=== PATIENT | female | born 1980 | race Asian ===

== ENCOUNTER 2018-08-14 20:09 | Emergency (ER) | payer BC ==
[~2018-08-14] VITALS: Ht 157.5 cm; Wt 59.0 kg
--- OUTSIDE RECORDS SUMMARY | 2018-08-14 20:11 | XMS REPORT ---
Author Author [facility] Address Unknown Phone Unavailable Care Team Providers Care Foil Cutter Name Role Phone Bebo HURST Unavailable Unavailable Problems This patient has no known problems. Allergies, Adverse Reactions, Alerts This patient has no known allergies or adverse reactions. Medications This patient has no known medications. Results Test Description Test Time Test Comments Text Results Atomic Results Result Comments CT CHEST W [place] [address] Patient Name: ROSANA BAR MR #: [id number] : 1980 Age/Sex: 37/F Req #: [id number] Adm Physician: Ordered by: IBRAHIMA HURST MD Report #: [id number] Location: ER Room/Bed: Procedure: [id number] CT/CT CHEST W Exam Date: 05/16/17 Exam Time: 2037 REPORT STATUS: Signed EXAM: CT CHEST W DATE: 05/16/2017 7:48 PM INDICATION: S PE PROTOCOL, 5D POST- WITH SOB/PL CP S [id number] S 2037 COMPARISON: None TECHNIQUE: Multidetector CT scanning of the chest was performed. Coronal and sagittal multiplanar reformations were obtained. IV Contrast: 100 mL of Isovue- 370 FINDINGS: LUNGS AND PLEURA: No consolidations or edema. Mild air- trapping at the right lung base. No effusions or pneumothorax. HEART, MEDIASTINUM, VESSELS: Heart size is upper limits of normal. There is no pericardial effusion. Normal great vessel caliber. No evidence of acute pulmonary artery embolism. There are no pathologically enlarged nodes. UPPER ABDOMEN: Unremarkable MUSCULOSKELETAL: No acute findings. IMPRESSION: No evidence of acute pulmonary embolism or other acute abnormality. Signed by: Dr Nolan Pelaez MD on 05/16/2017 9:15 PM Dictated By: NOLAN PELAEZ MD 14 Transcribed By: CHAD on 05/16/172114 COPY TO: IBRAHIMA HURST MD CHEST 2 VIEWS [place] [address] Patient Name: ROSANA BAR MR #: [id number] : 1980 Age/Sex: 37/F Req #: [id number] Adm Physician: Ordered by: GIA MONTIEL Report #: [id number] Location: ER Room/Bed: Procedure: [id number] DX/CHEST 2 VIEWS Exam Date: Exam Time: REPORT STATUS: Signed PROCEDURE: Frontal and lateral views of the chest. COMPARISON: 10/06/16 INDICATIONS: TROUBLE BREATHING FINDINGS: Lines/tubes: None. Lungs: The lungs are well inflated and clear. There is no evidence of pneumonia or pulmonary edema. Bilateral nipple shadows are again seen. Pleura: There is no pleural effusion or pneumothorax. Heart and mediastinum: The heart and the mediastinum are normal. Bones: No acute bony abnormality. IMPRESSION: 1. No acute cardiopulmonary disease. Dictated by: Reinaldo Hay M.D. on 05/16/2017 at 17:24 Electronically approved by: Reinaldo Hay M.D. on 05/16/2017 at 17:24 Dictated By: REINALDO HAY MD 23 Transcribed By: RIKA on 05/16/171723 COPY TO: GIA MONTIEL
[2018-08-14] MEDS ORDERED: BELLADONNA ALK/PHENOBARBITAL 5 ML UDC PO STA (22:20)
[2018-08-14] MEDS ORDERED: LIDOCAINE VISC 2% SOLN 15 ML UDC PO ONE (22:30)
[2018-08-14] MEDS ORDERED: MAGNESIUM/ALUMINUM/SIMETHICONE 30 ML UDC PO ONE (22:30)
--- NOTE | 2018-08-14 23:01 | Diagnostic Imaging Report ---
CHEST 2 VIEWS, Technique: CHEST 2 VIEWS Comparison: 05/16/2017 Clinical history: Cough DISCUSSION: Stable/unremarkable appearance of the heart, mediastinum, lungs and pleural spaces. IMPRESSION: No acute abnormality Signed by: Dr Isabelle Pelaez MD on 08/14/2018 10:58 PM
[2018-08-14] MEDS ORDERED: TAMIFLU75 MG PO (23:29)
== END 2018-08-14 23:36 | disposition home or self-care (01) ==
LOC: ER 20:09
DX: R50.9 Fever, unspecified (principal); R05 Cough; J11.1 Influenza due to unidentified influenza virus with other respiratory manifestations; K52.9 Noninfective gastroenteritis and colitis, unspecified
CPT/HCPCS: 71046; 87400; 99283

== ENCOUNTER 2019-06-23 13:27 | Emergency (ER) | payer BC ==
[~2019-06-23] VITALS: Ht 157.5 cm; Wt 59.0 kg
[~2019-06-23 13:27] MED LIST: TAMIFLU75 MG PO
[2019-06-23] MEDS ORDERED: METFORMIN HCL500 MG (13:36)
[2019-06-23] MEDS ORDERED: FERROUS SULFAT325 MG (13:36)
[2019-06-23] MEDS ORDERED: SODIUM CHLORIDE 0.9% 1000ML 1,000 ML IV STA ×2 (13:38→13:45)
[2019-06-23] MEDS ORDERED: ONDANSETRON HCL INJ 2MG/ML 2ML 2 MG/ML VIAL IV NR (13:45)
[2019-06-23] MEDS ORDERED: PANTOPRAZOLE 40 MG 10ML VIAL IV NR (14:00)
[2019-06-23] MEDS ORDERED: MORPHINE SULFATE 2 MG/ML SYR 1ML IV NR (14:00)
[2019-06-23 14:01] LABS: BILIRUBIN,URINE NEGATIVE (NEGATIVE); CLARITY,URINE SL CLOUDY (CLEAR); COLOR,URINE YELLOW (YELLOW); KETONES,URINE NEGATIVE (NEGATIVE); LEUKOCYTE ESTERASE ,URINE NEGATIVE (NEGATIVE); NITRITE,URINE NEGATIVE (NEGATIVE); PROTEIN,URINE DIPSTICK NEGATIVE (NEGATIVE); URINE UROBILINOGEN 0.2 mg/dL (0.2 - 1)
[2019-06-23 14:07] LABS: PREGNANCY TEST, URINE NEGATIVE (NEGATIVE)
[2019-06-23 14:20] LABS: BACTERIA,URINE MODERATE /HPF; EPITHELIAL CELLS,URINE FEW /LPF; WBC,URINE (MAN) 0-5 /HPF (0-5)
[2019-06-23 14:21] LABS: BASOPHILS # (AUTO) 0.1 (0.0-0.1); BASOPHILS % 0.4 % (0.0-1.0); EOSINOPHILS # (AUTO) 0.2 (0.0-0.4); EOSINOPHILS % 1.4 % (0.0-6.0); HEMATOCRIT 40.9 % (34.2-44.1); LYMPHOCYTES # (AUTO) 3.8 (1.0-3.2); LYMPHOCYTES % 29.7 % (18.0-39.1); MEAN CORPUSCULAR HEMOGLOBIN 26.4 pg (28-32); MEAN CORPUSCULAR HGB CONC 31.8 g/dL (31-35); MONOCYTES # (AUTO) 0.9 (0.2-0.8); MONOCYTES % 6.9 % (4.4-11.3); NEUTROPHILS # (AUTO) 7.9 (2.1-6.9); NEUTROPHILS % 61.3 % (38.7-80.0); PLATELET COUNT 418 x10e3/uL (140-360); RED BLOOD COUNT 4.93 x10e6/uL (3.6-5.1); RED CELL DISTRIBUTION WIDTH 13.7 % (11.7-14.4)
[2019-06-23 14:40] LABS: ALANINE AMINOTRANSFERASE 14 IU/L (0-55); ALKALINE PHOSPHATASE 62 IU/L (40-150); AMYLASE 84 U/L (25-125); ANION GAP 16.8 mmol/L (8-16); BLOOD UREA NITROGEN 10 mg/dL (7-26); BUN/CREATININE RATIO 13 (6-25); CALCIUM 9.5 mg/dL (8.4-10.2); CARBON DIOXIDE 24 mmol/L (22-29); CHLORIDE 105 mmol/L (98-107); CREATININE, SERUM 0.76 mg/dL (0.57-1.11); EST GLOMERULAR FILTRATION RATE > 60 ML/MIN (60-); GLUCOSE 98 mg/dL (74-118); LIPASE 23 U/L (8-78); MAGNESIUM 1.9 MG/DL (1.3-2.1); POTASSIUM 3.8 mmol/L (3.5-5.1); SODIUM 142 mmol/L (136-145)
== END 2019-06-23 15:47 | disposition home or self-care (01) ==
LOC: ER 13:27
DX: R11.2 Nausea with vomiting, unspecified (principal); R19.7 Diarrhea, unspecified; R10.9 Unspecified abdominal pain; E11.9 Type 2 diabetes mellitus without complications; E78.5 Hyperlipidemia, unspecified
CPT/HCPCS: 36415; 80053; 81001; 81025; 82150; 83690; 83735; 85025; 87086; 99284; C9113; J2270; J2405; J7030

== ENCOUNTER 2020-08-24 05:58 | Emergency (ER) | payer OTHER ==
[~2020-08-24] VITALS: Ht 157.5 cm; Wt 59.0 kg
[~2020-08-24 05:58] MED LIST changes: +FERROUS SULFAT325 MG; +METFORMIN HCL500 MG
[2020-08-24] MEDS ORDERED: KETOROLAC TROMETHAMINE 60 MG/2 ML VIAL IM ONE (06:15)
[2020-08-24] MEDS ORDERED: BUTALB-ACETAMI1 EAC2 PO (06:15)
== END 2020-08-24 06:52 | disposition home or self-care (01) ==
LOC: ER 06:04
DX: R51.9 Headache, unspecified (principal); E78.5 Hyperlipidemia, unspecified; K21.9 Gastro-esophageal reflux disease without esophagitis; E11.9 Type 2 diabetes mellitus without complications
CPT/HCPCS: 99282; J1885

== ENCOUNTER 2020-09-27 07:14 | Emergency (ER) | payer OTHER ==
[~2020-09-27] VITALS: Ht 157.5 cm; Wt 52.2 kg
[~2020-09-27 07:14] MED LIST changes: +BUTALB-ACETAMI1 EAC2 PO
[2020-09-27] MEDS ORDERED: SODIUM CHLORIDE 0.9% 1000ML 1,000 ML IV STA (07:30)
[2020-09-27] MEDS ORDERED: ONDANSETRON HCL INJ 2MG/ML 2ML 2 MG/ML VIAL IV STA (07:30)
[2020-09-27] MEDS ORDERED: PANTOPRAZOLE 40 MG 10ML VIAL IV STA (07:30)
[2020-09-27 07:40] LABS: BASOPHILS # (AUTO) 0.1 (0.0-0.1); BASOPHILS % 0.5 % (0.0-1.0); EOSINOPHILS # (AUTO) 0.3 (0.0-0.4); EOSINOPHILS % 2.3 % (0.0-6.0); HEMATOCRIT 39.3 % (34.2-44.1); HEMOGLOBIN 12.5 g/dL (12.0-16.0); LYMPHOCYTES # (AUTO) 3.6 (1.0-3.2); MEAN CORPUSCULAR HEMOGLOBIN 25.4 pg (28-32); MEAN CORPUSCULAR HGB CONC 31.8 g/dL (31-35); MEAN CORPUSCULAR VOLUME 79.9 fL (81-99); MONOCYTES # (AUTO) 0.6 (0.2-0.8); MONOCYTES % 5.5 % (4.4-11.3); NEUTROPHILS # (AUTO) 6.6 (2.1-6.9); NEUTROPHILS % 59.3 % (38.7-80.0); PLATELET COUNT 507 x10e3/uL (140-360); RED BLOOD COUNT 4.92 x10e6/uL (3.6-5.1)
[2020-09-27 07:44] LABS: CLARITY,URINE CLEAR (CLEAR); COLOR,URINE YELLOW (YELLOW)
[2020-09-27 07:45] LABS: KETONES,URINE NEGATIVE (NEGATIVE); LEUKOCYTE ESTERASE ,URINE NEGATIVE (NEGATIVE); NITRITE,URINE NEGATIVE (NEGATIVE); PROTEIN,URINE DIPSTICK NEGATIVE (NEGATIVE); URINE UROBILINOGEN 0.2 mg/dL (0.2 - 1)
[2020-09-27 07:48] LABS: PREGNANCY TEST, URINE NEGATIVE (NEGATIVE)
[2020-09-27 07:56] LABS: ALANINE AMINOTRANSFERASE 33 IU/L (0-55); ALBUMIN/GLOBULIN RATIO 0.9 (0.8-2.0); ALKALINE PHOSPHATASE 56 IU/L (40-150); ANION GAP 15.1 mmol/L (8-16); BACTERIA,URINE RARE /HPF; BLOOD UREA NITROGEN 13 mg/dL (7-26); BUN/CREATININE RATIO 16 (6-25); CALCIUM 9.1 mg/dL (8.4-10.2); CARBON DIOXIDE 26 mmol/L (22-29); CHLORIDE 100 mmol/L (98-107); CREATININE, SERUM 0.79 mg/dL (0.57-1.11); EPITHELIAL CELLS,URINE FEW /LPF; EST GLOMERULAR FILTRATION RATE > 60 ML/MIN (60-); GLUCOSE 122 mg/dL (74-118); LIPASE 27 U/L (8-78); POTASSIUM 4.1 mmol/L (3.5-5.1); SODIUM 137 mmol/L (136-145)
[2020-09-27] MEDS ORDERED: BELLADONNA ALK/PHENOBARBITAL 5 ML UDC PO ONE (08:15)
[2020-09-27] MEDS ORDERED: MAGNESIUM/ALUMINUM/SIMETHICONE 30 ML UDC PO ONE (08:15)
[2020-09-27 08:21] VITALS: BP 118/65
== END 2020-09-27 08:22 | disposition home or self-care (01) ==
LOC: ER 07:48
DX: R10.13 Epigastric pain (principal); K29.70 Gastritis, unspecified, without bleeding; E11.65 Type 2 diabetes mellitus with hyperglycemia
CPT/HCPCS: 36415; 80053; 81001; 81025; 83690; 83735; 85025; 99284; C9113; J2405; J7030

== ENCOUNTER 2021-01-11 19:56 | Emergency (ER) | payer OTHER ==
[~2021-01-11] VITALS: Ht 157.5 cm; Wt 52.2 kg
[2021-01-11] MEDS ORDERED: ACETAMINOPHEN 325 MG TAB PO ONE (20:30)
[2021-01-11] MEDS ORDERED: ACETAMINOPHEN 325 MG TAB ONE (20:35)
[2021-01-11] MEDS ORDERED: SODIUM CHLORIDE 0.9% 1000ML 1,000 ML IV STA (20:41)
[2021-01-11] MEDS ORDERED: ASPIRIN 81 MG CHEW TAB PO ONE (20:45)
[2021-01-11 21:07] LABS: STREPTOCOCCUS GRP A ANTIGEN NEGATIVE (NEGATIVE)
[2021-01-11 21:13] LABS: BASOPHILS # (AUTO) 0.1 (0.0-0.1); BASOPHILS % 0.4 % (0.0-1.0); EOSINOPHILS % 0.1 % (0.0-6.0); HEMOGLOBIN 12.6 g/dL (12.0-16.0); LYMPHOCYTES # (AUTO) 1.9 (1.0-3.2); MEAN CORPUSCULAR HEMOGLOBIN 25.3 pg (28-32); MEAN CORPUSCULAR HGB CONC 31.5 g/dL (31-35); MEAN CORPUSCULAR VOLUME 80.2 fL (81-99); MONOCYTES # (AUTO) 0.8 (0.2-0.8); MONOCYTES % 4.5 % (4.4-11.3); NEUTROPHILS # (AUTO) 15.6 (2.1-6.9); NEUTROPHILS % 84.3 % (38.7-80.0); PLATELET COUNT 436 x10e3/uL (140-360); RED BLOOD COUNT 4.99 x10e6/uL (3.6-5.1); RED CELL DISTRIBUTION WIDTH 15.1 % (11.7-14.4)
[2021-01-11 21:16] LABS: INFLUENZAE A&B ANTIGEN (RAPID) NEGATIVE (NEGATIVE)
[2021-01-11 21:30] LABS: ALANINE AMINOTRANSFERASE 10 IU/L (0-55); ALBUMIN 4.2 g/dL (3.5-5.0); ALKALINE PHOSPHATASE 56 IU/L (40-150); ANION GAP 16.6 mmol/L (8-16); BLOOD UREA NITROGEN 8 mg/dL (7-26); BUN/CREATININE RATIO 10 (6-25); CALCIUM 9.3 mg/dL (8.4-10.2); CARBON DIOXIDE 24 mmol/L (22-29); CHLORIDE 99 mmol/L (98-107); CREATINE KINASE 85 IU/L (29-168); CREATININE, SERUM 0.82 mg/dL (0.57-1.11); EST GLOMERULAR FILTRATION RATE > 60 ML/MIN (60-); GLUCOSE 170 mg/dL (74-118); POTASSIUM 3.6 mmol/L (3.5-5.1); SODIUM 136 mmol/L (136-145)
[2021-01-11] MEDS ORDERED: PIPERACILLIN/TAZOBACTAM 3.375 GM VIAL ONE (21:49)
[2021-01-11] MEDS ORDERED: SODIUM CHLORIDE 0.9% 50ML 50 ML ONE ×2 (21:49→22:05)
[2021-01-11] MEDS ORDERED: PIPERACILLIN/TAZOBACTAM 3.375 GM in SODIUM CHLORIDE 0.9% 50ML 50 ML IV SCH (22:00)
[2021-01-11] MEDS ORDERED: IOPAMIDOL 370 MG/ML 200 ML INFUS..BTL INJ ONE (22:05)
[2021-01-12] MEDS ORDERED: AZITHROMYCIN250 MG PO (00:09)
[2021-01-12 00:18] VITALS: BP 110/73
== END 2021-01-12 00:20 | disposition home or self-care (01) ==
LOC: ER 20:02
DX: R50.9 Fever, unspecified (principal); R06.00 Dyspnea, unspecified; R51.9 Headache, unspecified
CPT/HCPCS: 36415; 71260; 80053; 81025; 82550; 82553; 83518; 83605; 83880; 84484; 85025; 87040; 87070; 87400; 93005; 99284; J2543; J7030; Q9967

== ENCOUNTER 2022-01-22 08:09 | Emergency (ER) | payer OTHER ==
[~2022-01-22] VITALS: Ht 157.5 cm; Wt 54.4 kg
[~2022-01-22 08:09] MED LIST changes: +AZITHROMYCIN250 MG PO
[2022-01-22] MEDS ORDERED: AZITHROMYCIN250 MG PO (08:43)
[2022-01-22] MEDS ORDERED: IBUPROFEN200 MG PO (08:43)
[2022-01-22] MEDS ORDERED: LORATADINE10 MG PO (08:43)
[2022-01-22] MEDS ORDERED: THERAFLU MS SE1 EACH PO (08:43)
== END 2022-01-22 08:56 | disposition home or self-care (01) ==
LOC: FSED 08:28
DX: J30.9 Allergic rhinitis, unspecified (principal); R05.9 Cough, unspecified; E11.9 Type 2 diabetes mellitus without complications; Z79.84 Long term (current) use of oral hypoglycemic drugs
CPT/HCPCS: 83518; 87400; 99282

== ENCOUNTER 2022-04-19 16:23 | Emergency (ER) | payer OTHER ==
[~2022-04-19] VITALS: Ht 157.5 cm; Wt 57.2 kg
[~2022-04-19 16:23] MED LIST changes: +IBUPROFEN200 MG PO; +LORATADINE10 MG PO; +THERAFLU MS SE1 EACH PO
[2022-04-19] MEDS ORDERED: IBUPROFEN 600 MG TAB PO STA (16:47)
[2022-04-19] MEDS ORDERED: IBUPROFEN 600 MG TAB ONE (17:03)
[2022-04-19] MEDS ORDERED: AMOXICILLIN500 M1 PO (17:30)
== END 2022-04-19 17:37 | disposition home or self-care (01) ==
LOC: FSED 16:27
DX: J02.0 Streptococcal pharyngitis (principal); E11.9 Type 2 diabetes mellitus without complications; Z20.822 Contact with and (suspected) exposure to COVID-19
CPT/HCPCS: 81025; 83518; 87400; 99283; U0002

== ENCOUNTER → 2022-06-15 | Outpatient (CLI) | payer OTHER ==
[~2022-06-15] MED LIST changes: +AMOXICILLIN500 M1 PO; -METFORMIN HCL500 MG; +METFORMIN HCL500 MG PO
== END ==
LOC: US 07:43
PROVIDERS: ATTEND Internal Medicine Gastroenterology
DX: R10.10 Upper abdominal pain, unspecified (principal); R14.0 Abdominal distension (gaseous)
CPT/HCPCS: 76700

== ENCOUNTER → 2022-06-16 | Day surgery (SDC) | payer OTHER ==
[~2022-06-16] MED LIST changes: +LIDOCAINE HCL 2% LOCAL INJ 5 ML SDV VIAL INJ ONE; +PROPOFOL IV EMULSION 10 MG/ML 20 ML VIAL ONE; +SODIUM CHLORIDE 0.9% 500ML 500 ML ONE
[2022-06-16 14:25] VITALS: BP 101/65
== END | disposition home or self-care (01) ==
LOC: OR 10:32
PROVIDERS: ATTEND Internal Medicine Gastroenterology
DX: K29.70 Gastritis, unspecified, without bleeding (principal); K29.80 Duodenitis without bleeding; K26.9 Duodenal ulcer, unspecified as acute or chronic, without hemorrhage or perforation; K20.90 Esophagitis, unspecified without bleeding; K44.9 Diaphragmatic hernia without obstruction or gangrene; E11.9 Type 2 diabetes mellitus without complications; E78.00 Pure hypercholesterolemia, unspecified; E78.5 Hyperlipidemia, unspecified; Z79.84 Long term (current) use of oral hypoglycemic drugs; Z79.899 Other long term (current) drug therapy
CPT/HCPCS: 36415; 43239; 81025; 82948; C9113; J2001; J2704; J7040

== ENCOUNTER 2025-04-22 18:49 | Inpatient (IN) | payer OTHER ==
[~2025-04-22] VITALS: Ht 157.5 cm; Wt 52.2 kg
[~2025-04-22 18:49] MED LIST changes: +CEFDINIR300 MG PO; +DIFLUCAN150 MG PO; -LIDOCAINE HCL 2% LOCAL INJ 5 ML SDV VIAL INJ ONE; +OMEPRAZOLE40 MG PO; -PROPOFOL IV EMULSION 10 MG/ML 20 ML VIAL ONE; +REGLAN10 MG PO; -SODIUM CHLORIDE 0.9% 500ML 500 ML ONE
[2025-04-22 19:20] VITALS: TEMP 98.3
[2025-04-22 20:08] LABS: BASOPHILS % 0.5 % (0.0-1.0); EOSINOPHILS % 1.0 % (0.0-6.0); LYMPHOCYTES % 22.3 % (18.0-39.1); MONOCYTES % 6.7 % (4.4-11.3); NEUTROPHILS % 69.1 % (38.7-80.0); RED CELL DISTRIBUTION WIDTH 13.3 % (11.7-14.4)
[2025-04-22] MEDS: SODIUM CHLORIDE 0.9% 1000ML 1,000 ML IV STA (20:09)
[2025-04-22] MEDS: ONDANSETRON HCL INJ 2MG/ML 2ML 2 MG/ML VIAL IV STA (20:09)
[2025-04-22 20:10] LABS: LEUKOCYTE ESTERASE ,URINE MODERATE (NEGATIVE); PROTEIN,URINE DIPSTICK NEGATIVE (NEGATIVE); URINE UROBILINOGEN 0.2 mg/dL (0.2 - 1)
[2025-04-22 20:11] LABS: PREGNANCY TEST, URINE NEGATIVE (NEGATIVE)
[2025-04-22 20:25] LABS: EPITHELIAL CELLS,URINE MODERATE /LPF
[2025-04-22 20:31] LABS: EST GLOMERULAR FILTRATION RATE 112.0 ML/MIN (>=60)
[2025-04-22] MEDS ORDERED: IOPAMIDOL 370 MG/ML 100 ML INFUS..BTL INJ ONE (20:38)
[2025-04-22] MEDS ORDERED: Morphine 4mg INJECTION 4 MG/ML INJ IV PRN (22:45)
[2025-04-22] MEDS: Morphine 4mg INJECTION 4 MG/ML INJ IV PRN (23:06)
[2025-04-22 23:16] VITALS: PULSE 88; RESP 16
[2025-04-22 23:59] VITALS: BP 108/93; PULSE 79; RESP 16; TEMP 98.6
[2025-04-23] VITALS (8 sets, daily range): BP systolic 102–124; BP diastolic 41–93; PULSE 72–88; RESP 16–20; TEMP 97.7–98.6; O2SAT 97–100
[2025-04-23] MEDS: SODIUM CHLORIDE 0.9% 1000ML 1,000 ML IV SCH (01:25)
[2025-04-23] MEDS ORDERED: METFORMIN HCL500 MG PO (01:48)
[2025-04-23 06:57] LABS: BASOPHILS % 0.5 % (0.0-1.0); EOSINOPHILS % 1.4 % (0.0-6.0); LYMPHOCYTES % 23.8 % (18.0-39.1); MONOCYTES % 6.6 % (4.4-11.3); NEUTROPHILS % 67.3 % (38.7-80.0); RED CELL DISTRIBUTION WIDTH 13.5 % (11.7-14.4)
[2025-04-23 07:28] LABS: EST GLOMERULAR FILTRATION RATE 112.0 ML/MIN (>=60)
[2025-04-23] MEDS: ONDANSETRON HCL INJ 2MG/ML 2ML 2 MG/ML VIAL IV PRN (10:45)
[2025-04-23] MEDS ORDERED: ERGOCALCIFEROL1 GM PO (11:03)
[2025-04-23] MEDS ORDERED: LISINOPRIL2.5 MG PO (11:03)
[2025-04-23] MEDS ORDERED: PIOGLITAZONE HC45 MG PO (11:03)
[2025-04-23] MEDS ORDERED: OZEMPIC1 MG/0.71 SUBD (11:03)
[2025-04-23] MEDS ORDERED: PROTONIX20 MG PO (11:03)
[2025-04-23] MEDS ORDERED: ATORVASTATIN CA20 MG PO (11:03)
[2025-04-23] MEDS ORDERED: GLIMEPIRIDE2 MG PO (11:03)
[2025-04-23] MEDS ORDERED: DEXTROSE 50% SYRINGE 50 ML IV PRN (22:45)
[2025-04-24] VITALS (7 sets, daily range): BP systolic 109–124; BP diastolic 50–75; PULSE 67–75; RESP 16–19; TEMP 97–98.2; O2SAT 97–100
[2025-04-24 05:34] LABS: BASOPHILS % 0.7 % (0.0-1.0); EOSINOPHILS % 3.2 % (0.0-6.0); LYMPHOCYTES % 33.4 % (18.0-39.1); MONOCYTES % 6.6 % (4.4-11.3); NEUTROPHILS % 55.9 % (38.7-80.0); RED CELL DISTRIBUTION WIDTH 13.3 % (11.7-14.4)
[2025-04-24 06:02] LABS: EST GLOMERULAR FILTRATION RATE 116 ML/MIN (>=60)
[2025-04-24 06:21] LABS: % IRON SATURATION 7 % (15-50)
[2025-04-24] MEDS: INSULIN LISPRO 100 UNIT/1 ML 3ML VIAL SQ SCH (07:30)
[2025-04-24] MEDS: LISINOPRIL 2.5 MG TAB PO SCH (09:23)
[2025-04-24] MEDS: ATORVASTATIN 40 MG TAB PO SCH (21:04)
[2025-04-25] VITALS (7 sets, daily range): BP systolic 93–109; BP diastolic 55–78; PULSE 69–79; RESP 16–19; TEMP 97.8–98.7; O2SAT 96–100
[2025-04-25] MEDS: CYANOCOBALAMIN INJ 1,000 MCG/ML VIAL IM ONE (00:47)
[2025-04-25 06:25] LABS: BASOPHILS % 0.6 % (0.0-1.0); EOSINOPHILS % 3.7 % (0.0-6.0); LYMPHOCYTES % 30.4 % (18.0-39.1); MONOCYTES % 6.6 % (4.4-11.3); NEUTROPHILS % 58.5 % (38.7-80.0); RED CELL DISTRIBUTION WIDTH 13.2 % (11.7-14.4)
[2025-04-25 06:53] LABS: EST GLOMERULAR FILTRATION RATE 92 ML/MIN (>=60)
[2025-04-25] MEDS: IRON SUCROSE 100 MG in SODIUM CHLORIDE 0.9% 100 ML IV SCH (08:37)
[2025-04-25] MEDS: CYANOCOBALAMIN INJ 1,000 MCG/ML VIAL IM SCH (08:37)
[2025-04-25] MEDS: ONDANSETRON HCL INJ 2MG/ML 2ML 2 MG/ML VIAL IV SCH (23:39)
[2025-04-26] VITALS (8 sets, daily range): BP systolic 102–121; BP diastolic 61–80; PULSE 74–88; RESP 16–19; TEMP 97.4–98.9; O2SAT 95–100
[2025-04-27 03:59] VITALS: BP 111/66; PULSE 67; RESP 16; TEMP 98.1; O2SAT 100
[2025-04-27 06:32] LABS: BASOPHILS % 0.5 % (0.0-1.0); EOSINOPHILS % 2.7 % (0.0-6.0); LYMPHOCYTES % 28.7 % (18.0-39.1); MONOCYTES % 7.5 % (4.4-11.3); NEUTROPHILS % 60.4 % (38.7-80.0); RED CELL DISTRIBUTION WIDTH 13.2 % (11.7-14.4)
[2025-04-27 07:03] LABS: EST GLOMERULAR FILTRATION RATE 110.0 ML/MIN (>=60)
[2025-04-27 08:20] VITALS: BP 109/65; PULSE 76; RESP 18; TEMP 97.8; O2SAT 99
[2025-04-27 13:12] VITALS: BP 113/76; PULSE 76; RESP 18; TEMP 97.7; O2SAT 100
[2025-04-27] MEDS: POLYETHYLENE GLYCOL 3350 17 GM PACK PO ONE (14:36)
== END 2025-04-27 15:15 | disposition home or self-care (01) | DRG 392 ==
LOC: ER 18:55 → ERHOLD 23:48 → MED/SURG2 23:54
PROVIDERS: ADMIT Internal Medicine; ATTEND Internal Medicine
DX: K57.32 Diverticulitis of large intestine without perforation or abscess without bleeding (principal); N39.0 Urinary tract infection, site not specified; B96.89 Other specified bacterial agents as the cause of diseases classified elsewhere; D75.839 Thrombocytosis, unspecified; K52.9 Noninfective gastroenteritis and colitis, unspecified; E11.65 Type 2 diabetes mellitus with hyperglycemia; Z79.84 Long term (current) use of oral hypoglycemic drugs; D50.9 Iron deficiency anemia, unspecified; E53.8 Deficiency of other specified B group vitamins; I10 Essential (primary) hypertension; E78.5 Hyperlipidemia, unspecified; K76.0 Fatty (change of) liver, not elsewhere classified; Z79.899 Other long term (current) drug therapy
CPT/HCPCS: 36415; 74177; 76705; 80053; 81001; 81025; 82607; 82746; 82948; 83540; 83690; 84466; 85025; 85045; 87086; 94799; 99284; J1756; J2270; J2405; J2543; J3420; J7030; J7050; Q9967